=== PATIENT | male | born 1970 | race Caucasian/White ===

== ENCOUNTER 2024-10-02 11:33 | Emergency (ER) | payer SELFPAY ==
[2024-10-02] MEDS: Sodium Chloride 0.9% 1,000 ML IV ONE ×2 (12:21→14:11)
[2024-10-02 12:39] LABS: BASOPHILS ABSOLUTE AUTO 0.04 K/uL (0.00-0.20); BASOPHILS PERCENT AUTO 0.2 % (0.0-1.0); EOSINOPHILS ABSOLUTE AUTO 0.02 K/uL (0.00-0.45); EOSINOPHILS PERCENT AUTO 0.1 % (0.0-6.0); HEMATOCRIT 47.6 % (42.0-52.0); IMMATURE GRAN ABSOLUTE AUTO 0.05 K/uL (0.00-0.05); IMMATURE GRAN PERCENT AUTO 0.3 % (0.0-0.4); LYMPHOCYTES ABSOLUTE AUTO 1.84 K/uL (1.00-4.80); LYMPHOCYTES PERCENT AUTO 10.4 % (24.0-44.0); MEAN CORPUSCULAR HEMOGLOBIN 30.4 pg (28.0-32.0); MEAN CORPUSCULAR HGB CONC 35.7 g/dL (32.0-36.0); MEAN PLATELET VOLUME 10.4 fL (9.4-12.4); MONOCYTES ABSOLUTE AUTO 1.03 K/uL (0.00-0.80); MONOCYTES PERCENT AUTO 5.8 % (0.0-8.0); NEUTROPHILS ABSOLUTE AUTO 14.67 K/uL (1.80-7.70); NEUTROPHILS PERCENT AUTO 83.2 % (41.0-71.0); PLATELET COUNT,PLT 241 K/uL (150-400); WHITE BLOOD CELL COUNT,WBC 17.65 K/uL (3.9-11.3)
[2024-10-02] MEDS: Iopamidol 755 MG/ML 500 ML Multipack Bottle IVPUSH STA ×2 (12:55→17:20)
[2024-10-02 13:13] LABS: LACTIC ACID 2.3 mmol/L (0.4-2.0)
[2024-10-02 13:26] LABS: ALBUMIN 4.1 g/dL (3.4-5.0); BILIRUBIN TOTAL 1.5 mg/dL (0.2-1.0); CALCIUM 9.3 mg/dL (8.5-10.1); CARBON DIOXIDE,CO2 21.9 mmol/L (21.0-32.0); CREATININE 1.7 mg/dL (0.8-1.3); EST CRCL DRUG DOSING (CG) 54.52 mL/min; MAGNESIUM 1.9 mg/dL (1.8-2.4); POTASSIUM,K 3.8 mmol/L (3.5-5.1); PROTEIN TOTAL,TP 8.4 g/dL (6.4-8.2)
[2024-10-02] MEDS: Ketorolac 30 MG/ML SDV IVPUSH ONE (15:33)
== END 2024-10-02 19:32 | disposition home or self-care (01) ==
LOC: MW.ED 11:33
DX: A41.9 Sepsis, unspecified organism (principal); K40.90 Unilateral inguinal hernia, without obstruction or gangrene, not specified as recurrent; K42.9 Umbilical hernia without obstruction or gangrene; E87.20 Acidosis, unspecified; R74.01 Elevation of levels of liver transaminase levels; R94.31 Abnormal electrocardiogram [ECG] [EKG]; Z75.8 Other problems related to medical facilities and other health care; K76.0 Fatty (change of) liver, not elsewhere classified; R79.1 Abnormal coagulation profile; D72.829 Elevated white blood cell count, unspecified; R59.0 Localized enlarged lymph nodes
CPT/HCPCS: 36415; 71046; 71275; 74177; 76705; 80053; 83605; 83690; 83735; 84484; 85025; 85379; 87040; 87428; 93005; 96361; 96374; 99284; J1885; J7030; Q9967; 93010

== ENCOUNTER 2024-10-14 08:46 | Day surgery (SDC) | payer SELFPAY ==
[2024-10-14] MEDS: Lactated Ringers 1,000 ML IV SCH (09:18)
[2024-10-14] MEDS ORDERED: Propofol 200 MG/20 ML SDV ONE ×2 (10:26→11:10)
[2024-10-14] MEDS ORDERED: Lidocaine 2% 5 ML SDV ONE (10:26)
[2024-10-14] MEDS ORDERED: Lactated Ringers 1,000 ML IV SCH (11:45)
== END 2024-10-14 12:20 | disposition home or self-care (01) ==
LOC: MW.SDS 08:46
PROVIDERS: ATTEND Surgery
DX: K29.50 Unspecified chronic gastritis without bleeding (principal); K22.10 Ulcer of esophagus without bleeding; K21.00 Gastro-esophageal reflux disease with esophagitis, without bleeding; K44.9 Diaphragmatic hernia without obstruction or gangrene; K22.89 Other specified disease of esophagus; K43.9 Ventral hernia without obstruction or gangrene; K42.9 Umbilical hernia without obstruction or gangrene; K40.90 Unilateral inguinal hernia, without obstruction or gangrene, not specified as recurrent; F17.290 Nicotine dependence, other tobacco product, uncomplicated; Z79.899 Other long term (current) drug therapy
CPT/HCPCS: 43239; J2704; J7120; 00731; J3490